=== PATIENT | female | born 1955 | race Caucasian/White ===

== ENCOUNTER → 2020-10-12 10:54 | Outpatient (CLI) | payer MEDICARE, SELFPAY ==
--- NOTE | ~2020-10-12 | MR_ITS ---
EXAMINATION: MR lumbar spine wo con EXAM DATE: 10/12/2020 11:33 INDICATION: Lumbar spondylosis. Low back pain. TECHNIQUE: Multi-sequential, multiplanar MR images of the lumbar spine were obtained without contrast . Sagittal T1, T2, T2 fat saturation images. Axial T2 weighted images. Comparison is made to prior examination from 12/20/2016. FINDINGS: There is moderate lumbar levoscoliosis. Severe disc disease L3-4 and L4-5 with about 5 mm r etrolisthesis at both of these levels. 3 mm retrolisthesis L1 on L2 and L2 on L3. Mild to moderate lo ss of the L3-L5 vertebral body heights without edema indicating that this height loss is chronic. Thi s is not significant change compared to prior study. The conus medullaris terminates at the L1/2 leve l and has normal signal intensity and morphology. Paraspinal soft tissue is unremarkable. Level by level evaluation: T12-L1: Disc does not extend beyond the endplate margin. Facet arthropathy: Mild. Neural foraminal stenosis: No stenosis. Central canal stenosis: No stenosis. L1-L2: There is a mild to moderate diffuse disc bulge. Facet arthropathy: Mild to moderate. Neural foraminal stenosis: Mild left. Central canal stenosis: Mild. L2-L3: There is a moderate diffuse disc bulge. Facet arthropathy: Moderate . Ligamentum flavum enlargement. Neural foraminal stenosis: Moderate right, mild to moderate left. Central canal stenosis: Moderate. L3-L4: There is a moderate diffuse disc bulge. Facet arthropathy: Moderate to severe. Neural foraminal stenosis: Moderate to severe right, mild left. Central canal stenosis: Mild to moderate. Lateral recess narrowing. L4-L5: There is a moderate diffuse disc bulge. Facet arthropathy: Moderate to severe. Neural foraminal stenosis: Severe left, moderate right. Central canal stenosis: Moderate to severe, particularly left lateral recess. L5-S1: There is a mild diffuse disc bulge. Facet arthropathy: Moderate. Neural foraminal stenosis: Moderate to severe left, moderate right. Central canal stenosis: Mild. Mild interval progression in spondylosis compared to 2017. IMPRESSION: 1. Moderate lumbar levoscoliosis. 2. Advanced lumbar spondylosis with severe narrowing of the L4-5 lateral recess and neural foramina. Reviewed, dictated and finalized at location A. D COUNTER ATTENDANT IMPRESSION: 1. Moderate lumbar levoscoliosis. 2. Advanced lumbar spondylosis with severe narrowing of the L4-5 lateral reces s and neural foramina.
== END ==
DX: M47.817 Spondylosis without myelopathy or radiculopathy, lumbosacral region (principal); M48.07 Spinal stenosis, lumbosacral region; M41.9 Scoliosis, unspecified
CPT/HCPCS: 72148

== ENCOUNTER → 2021-03-19 14:44 | Outpatient (CLI) | payer MEDICARE, SELFPAY ==
--- NOTE | ~2021-03-19 | MM_ITS ---
EXAMINATION: MM screening [facility] w micheal HISTORY: Screening mammogram TECHNIQUE: Craniocaudal and mediolateral oblique 3-D tomosynthesis images were obtained and synthetic 2-D images were generated. CAD analysis was submitted and interpreted. COMPARISON: 08/27/2019, 04/29/2015 bilateral digital screening mammogram examinations BREAST PARENCHYMAL COMPOSITION: There are scattered areas of fibroglandular density. FINDINGS: Stable focal asymmetry in the anterior upper inner right breast, stable since 04/29/2015. The re is no evidence of suspicious mass, calcification, or architectural distortion to suggest malignanc y in either breast. There has been no suspicious interval change. IMPRESSION: 1. No mammographic evidence of malignancy. 2. Recommend routine screening mammography in one year. BI-RADS Category 1: Negative Reviewed, dictated and finalized at location A.
== END ==
PROVIDERS: PCP Family Medicine; Visit Provider Family Medicine
DX: Z12.31 Encounter for screening mammogram for malignant neoplasm of breast (principal)
CPT/HCPCS: 77063; 77067

== ENCOUNTER 2022-02-03 15:05 | Outpatient (CLI) | payer MEDICARE, SELFPAY ==
--- NOTE | ~2022-02-03 | XR_ITS ---
XR ankle RT min 3V DATE: 02/03/2022 15:29 INDICATION: Right ankle effusion, arthritis TECHNIQUE: 4 views COMPARISON: 05/06/2015 right ankle 11/24/2016 right foot FINDINGS: Diffuse osteopenia. Accessory ossicle at the tip of the lateral malleolus (os subfibular artery). No fracture or dislocation of the ankle or disruption of the ankle mortise. Very prominent dorsal spurring and joint space narrowing at the talonavicular joint. Prominent os tibiale externum. There is mild osteoarthritis at the tarsometatarsal area. No significant fracture or dislocation, periosteal reaction or bone destruction is detected. There is old healed fracture deformity of the distal shaft of the fourth metatarsal bone. IMPRESSION: Osteopenia Prominent osteoarthritic change and spurring at the talonavicular joint; mild osteoarthritis at tarsa l metatarsal Prominent os tibiale externum Old healed fracture of distal fourth metatarsal shaft Reviewed, dictated and finalized at location B. IMPRESSION: Osteopenia Prominent osteoarthritic change and spurring at the talonavicular joint; mild o steoarthritis at tarsal metatarsal Prominent os tibiale externum Old healed fracture of distal fourth metatarsal shaft
== END 2022-02-03 15:06 | disposition home or self-care (01) ==
PROVIDERS: PCP Family Medicine; Visit Provider Family Medicine
DX: M25.571 Pain in right ankle and joints of right foot (principal); M25.471 Effusion, right ankle; M19.071 Primary osteoarthritis, right ankle and foot; Q66.81 Congenital vertical talus deformity, right foot; Z87.81 Personal history of (healed) traumatic fracture
CPT/HCPCS: 73610

== ENCOUNTER → 2022-11-28 10:18 | Outpatient (CLI) | payer MEDICARE, SELFPAY ==
--- NOTE | ~2022-11-28 | MM_ITS ---
EXAMINATION: MM screening [facility] [place] micheal HISTORY: Screening mammogram TECHNIQUE: Craniocaudal and mediolateral oblique 3-D tomosynthesis images were obtained and synthetic 2-D images were generated. CAD analysis was submitted and interpreted. COMPARISON: 03/19/2021, 08/27/2019, 04/29/2015 BREAST PARENCHYMAL COMPOSITION: There are scattered areas of fibroglandular density. FINDINGS: Again noted is stable focal asymmetry in the upper outer quadrant of the right breast. No s uspicious mass, calcification, or architectural distortion are identified in either breast to suggest malignancy. There has been no suspicious interval change. IMPRESSION: 1. No mammographic evidence of malignancy. 2. Recommend routine screening mammography in one year. BI-RADS Category 2: Benign finding(s). Reviewed, dictated and finalized at location A. RAM SERVICES PLANNER
--- NOTE | ~2022-11-28 | DEXA_ITS ---
Bone Density Report Name: BISMARK JOHN Age: 67 Sex: Female Ethnicity: White Date of : 1955 Indication: osteopenia; height loss; postmenopausal Referring Provider: KENDAL GAINES Study: Bone densitometry was performed. Exam Date: November 28, 2022 Accession number: [id number] Bone Density: Region BMD T-score Z-score Classification AP Spine (L1, L2) 0.840 -1.3 0.6 Osteopenia Femoral Neck (Left) 0.625 -2.0 -0.3 Osteopenia Total Hip (Left) 0.737 -1.7 -0.3 Osteopenia Femoral Neck (Right) 0.624 -2.0 -0.3 Osteopenia Total Hip (Right) 0.766 -1.4 0.0 Osteopenia Total Hip Mean 0.752 -1.6 -0.2 Osteopenia World Health Organization criteria for BMD impression classify patients as: Normal (T-score at or above -1.0), Osteopenia (T-score between -1.0 and -2.5), or Osteoporosis (T-score at or below -2.5). 10-year Fracture Risk(1): Major Osteoporotic Fracture 11% Hip Fracture 1.9% Reported Risk Factors: [place] (), Neck BMD=0.624, BMI=24.5 (1) FRAX(R) Version 3.08. Fracture probability calculated for an untreated patient. Fracture probability may be lower if the patient has received treatment. Previous Exams: Region Exam Age BMD T-score BMD Change BMD Change Date g/cm2 vs Baseline vs Previous AP Spine(L1, L2) 11/28/2022 67 0.840 -1.3 0.027* 0.033* 08/27/2019 64 0.807 -1.6 -0.006 -0.035* 03/21/2013 57 0.842 -1.2 0.029* 0.004 01/24/2011 55 0.838 -1.3 0.025* 0.025* 01/16/2009 53 0.814 -1.5 Total Hip(Left) 11/28/2022 67 0.737 -1.7 -0.032* -0.021 08/27/2019 64 0.758 -1.5 -0.012 -0.015 03/21/2013 57 0.772 -1.4 0.003 0.006 01/24/2011 55 0.766 -1.4 -0.003 -0.003 01/16/2009 53 0.769 -1.4 Total Hip(Right) 11/28/2022 67 0.766 -1.4 -0.018 0.008 08/27/2019 64 0.758 -1.5 -0.026 -0.045* 03/21/2013 57 0.802 -1.1 0.018 0.005 01/24/2011 55 0.797 -1.2 0.013 0.013 01/16/2009 53 0.784 -1.3 *Denotes significance at 95% confidence level, LSC for AP Spine = 0.022 g/cm2, LSC for Total Hip = 0.027 g/cm2 Clinical Information Provided by Patient: Has used the following medications: Vitamin D, Calcium Patient maximum height was 65 Menopause Age: 56 No regular weight bearing exercise Drinks caffeinated beverages Onset of menses a
== END ==
PROVIDERS: PCP Family Medicine; Visit Provider Family Medicine
DX: Z12.31 Encounter for screening mammogram for malignant neoplasm of breast (principal); Z78.0 Asymptomatic menopausal state; M85.89 Other specified disorders of bone density and structure, multiple sites
CPT/HCPCS: 77063; 77067; 77080

== ENCOUNTER 2023-02-22 08:45 | Outpatient (RCR) | payer MEDICARE, SELFPAY ==
--- NOTE | 2023-01-31 11:47 | PTOPEVAL1 ---
Assessment and note entered by Jose Calvillo, PT Evaluation Information Assessment Status Evaluation Diagnosis Spinal stenosis, lumbar region Onset 6-8 weeks ago. Subjective Information Patient reports she has had a bad back for awhile, but that she did core strengthening over 2 years ago and that has helped. In the last 6-8 weeks she started feeling impaired sensation in her R thigh, no pain or weakness reported. Patient reports worst pain in back is after carrying her groceries up her stairs. Patient states she has scoliosis and recently had an orthotic insert put in her R shoe for R ankle pain. Originally said the insert was 8 weeks old and now states it was closer to 6 months ago. Reported Pain Level Pain Score 6: Self Report Assessment PT Clinical Summary Deisy is a 67 year old female coming into the clinic with a diagnosis of spinal stenosis of the lumbar region. She has weakness in her hips and S /S of sciatica on the RLE. Recommend hip strengthening along with stretching of the low back, piriformis, and calf. Patient had an MRI 2 years ago, may not be a bad idea to get another one. Plan of Care Interventions Electrical Stimulation,Gait Training,Hot Pack/Cold Pack,Manual Therapy,Mechanical Traction,Neuro Re- education,Patient/Caregiver Education,Therapeutic Activities,Therapeutic Exercise,Ultrasound Other Interventions taping, cupping, IASTM PT Services Indicated Yes Treatment Frequency and 1-2x/wk for 4 weeks Duration These treatments will address the objective and functional deficits as defined above. The patient will be advanced safely and appropriately in order for the patient to progress towards his/her prior level of function. Additional exercises will be introduced and as well as a comprehensive home exercise program upon discharge, if needed, ?to ensure carryover of functional gains achieved in the clinic. This treatment plan has been reviewed and agreement upon by the patient.
--- NOTE | 2023-04-11 11:40 | PTOPDC ---
Assessment and note entered by Jose Calvillo, PT Evaluation Information Assessment Status Discharge - Pt Not Present Diagnosis spinal stenosis, lumbar region Onset 6-8 weeks ago. 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 Patient knows she can get a new referral later if needed. Assessment PT Clinical Summary Deisy is a 67 year old female coming into the clinic with a diagnosis of spinal stenosis of the lumbar region. She has weakness in her hips and S /S of sciatica on the RLE. Recommend hip strengthening along with stretching of the low back, piriformis, and calf. Patient had an MRI 2 years ago, may not be a bad idea to get another one. Plan of Care PT Services Indicated Yes
== END 2023-04-11 15:12 | disposition home or self-care (01) ==
LOC: ANHPT 08:45
PROVIDERS: PCP Family Medicine; Visit Provider Family Medicine
DX: M48.061 Spinal stenosis, lumbar region without neurogenic claudication (principal)
CPT/HCPCS: 97110; 97161

== ENCOUNTER → 2023-03-20 09:46 | Outpatient (CLI) | payer MEDICARE, SELFPAY ==
--- NOTE | ~2023-03-20 | MR_ITS ---
MRI of the lumbar spine Clinical History: Back pain, paresthesias Technique: Axial T2-weighted and T1-weighted images, and sagittal T1-weighted, T2-weighted, and T2 fa t-sat images were acquired. Following intravenous administration of 15 cc MultiHance gadolinium, T1-w eighted fat-sat imaging was performed in the axial and sagittal planes. Findings: No acute fracture identified. 5 mm retrolisthesis of L2 over L3 present. 5 mm retrolisthesi s of L3 over L4 present. 6 mm retrolisthesis of L4 over L5 present. There is extensive reactive marro w signal in the L2, L3, L4 vertebral bodies related to degenerative disc disease. At L1-L2, there is disc bulge, most prominent left foraminal region, with mild to moderate facet arth ropathy. No central canal stenosis. There is preservation of the neural foramina. At L2-L3, there is severe degenerative disc narrowing. Disc bulge and severe facet arthropathy result in moderate to severe thecal sac compression/spinal canal stenosis. There is severe right neural for aminal narrowing. There is minimal left neural foraminal narrowing. L3-L4, there is severe degenerative disc narrowing. There is mild disc osteophyte complex and severe facet arthropathy. There is right lateral recess stenosis. There is severe right neural foraminal chase rowing and moderate left neural foraminal narrowing. At L4-L5, there is severe degenerative disc narrowing. There is severe facet arthropathy, left worse than right. There is severe left neural foraminal narrowing and moderate to severe right neural jourdan inal narrowing. At L5-S1, there is minimal disc bulge, with severe facet arthropathy. No central canal stenosis. Ther e is mild left neural foraminal narrowing. Paravertebral soft tissues are unremarkable. No suspicious postcontrast enhancement identified. Impression: Severe degenerative spondylosis of the lumbar spine, as detailed above. 5 mm retrolisthesis of L2 over L3. 5 mm retrolisthesis of L3 over L4. 6 mm retrolisthesis of L4 over L5. Reviewed, dictated and finalized at [facility]. Impression: Severe degenerative spondylosis of the lumbar spine, as detailed above. 5 mm retrolisthesis of L2 over L3. 5 mm retrolisthesis of L3 over L4. 6 mm retrolisthesis of L4 over L5.
== END ==
PROVIDERS: PCP Family Medicine; Visit Provider Family Medicine
DX: M48.061 Spinal stenosis, lumbar region without neurogenic claudication (principal); M47.816 Spondylosis without myelopathy or radiculopathy, lumbar region
CPT/HCPCS: 72158; A9577

== ENCOUNTER → 2023-05-30 11:02 | Outpatient (CLI) | payer MEDICARE, SELFPAY ==
--- NOTE | ~2023-05-30 | XR_ITS ---
EXAM: XR lumbar spine min 4V DATE: 05/30/2023 11:49 HISTORY: M47.16 - Other spondylosis with myelopathy, lumbar region . COMPARISON: MR L-spine 03/20/2023. FINDINGS: 5 nonrib-bearing lumbar-type vertebral bodies. Lumbar scoliosis. Exaggerated lumbar lordos is. Multilevel severe degenerative disc disease. Stable multilevel mild vertebral body height loss. S table multilevel grade 1 retrolistheses. Very limited range of motion in flexion. Essentially no posi tion change in extension. Severe mid and lower lumbar facet sclerosis. Atherosclerotic aortic calcifi cations without evident aneurysm IMPRESSION: Grossly stable multilevel mild vertebral body compression fractures, listheses, and severe lumbar deg enerative disc disease. Very limited range of motion in flexion and extension which limits evaluation for dynamic listheses. Reviewed, dictated and finalized at location K. IMPRESSION: Grossly stable multilevel mild vertebral body compression fractures, listheses, and severe lumbar degenerative disc disease. Very limited range of motion in flexion and extension which limits evaluation f or dynamic listheses.
== END ==
PROVIDERS: PCP Neurological Surgery; Visit Provider Neurological Surgery
DX: M48.061 Spinal stenosis, lumbar region without neurogenic claudication (principal); M47.16 Other spondylosis with myelopathy, lumbar region; M51.36 Other intervertebral disc degeneration, lumbar region
CPT/HCPCS: 72110

== ENCOUNTER → 2023-07-11 09:16 | Outpatient (CLI) | payer MEDICARE, SELFPAY ==
--- NOTE | ~2023-07-11 | XR_ITS ---
AP view of the pelvis and AP and lateral views of the bilateral hips Clinical history: Pain Findings: No acute fracture or dislocation is seen. Osseous alignment is anatomic. Bilateral hip and SI joint spaces are preserved. Soft tissues are unremarkable. Impression: No significant abnormality is seen. Reviewed, dictated and finalized at location . Impression: No significant abnormality is seen.
--- NOTE | ~2023-07-11 | XR_ITS ---
Left Knee Technique: AP, lateral, and sunrise views were obtained. Clinical History: Ankylosing spondylitis Findings: No fracture or dislocation is seen. Osseous alignment is anatomic. Joint spaces are preserv ed without degenerative or erosive change. Soft tissues are unremarkable. No joint effusion is seen. Impression: Unremarkable left knee radiographs. Reviewed, dictated and finalized at location . Impression: Unremarkable left knee radiographs.
--- NOTE | ~2023-07-11 | XR_ITS ---
Right Knee Technique: AP, lateral, and sunrise views were obtained. Clinical History: Ankylosing spondylitis Findings: No fracture or dislocation is seen. Osseous alignment is anatomic. Joint spaces are preserv ed without degenerative or erosive change. Soft tissues are unremarkable. No joint effusion is seen. Impression: Unremarkable right knee radiographs. Reviewed, dictated and finalized at location . Impression: Unremarkable right knee radiographs.
== END ==
PROVIDERS: PCP Internal Medicine; Visit Provider Internal Medicine
DX: M45.0 Ankylosing spondylitis of multiple sites in spine (principal); M80.00XD Age-related osteoporosis with current pathological fracture, unspecified site, subsequent encounter for fracture with routine healing
CPT/HCPCS: 73521; 73562

== ENCOUNTER 2023-09-27 09:15 | Outpatient (RCR) | payer MEDICARE, SELFPAY ==
--- NOTE | 2023-08-24 10:52 | PTOPEVAL1 ---
Assessment and note entered by Balta Farmer Evaluation Information Assessment Status Evaluation Diagnosis scoliosis, lumbar stenosis, low back pain Subjective Information Pt. reports she has had years of low back pain. She reports that recent films indicated that she has developed a scoliosis. She reports that pain is located across the low back and pain radiates into the left thigh and down to the knee. She gets occasional numbness described in the left arellano. She reports that she has been to therapy in the past, but was unable to complete due to lack of staffing at the facility she attended. She reports that she is concerned regarding some weakness in the left leg. She states that she has fallen due to the left leg giving out and she is currently using a cane. She states that her scoliosis concerns her and would like to address her scoliosis. Reported Pain Level Pain Score 4: Self Report Assessment PT Clinical Summary Pt. is a 68 year old female who enters the clinic with low back pain and left l.e. radiculopathy. She presents with structural scoliosis of the thoracolumbar region resulting in muscular imbalance. She currently presents with impaired postural awareness, impaired right l.e. flexibility, impaired proximal left l.e. strength, impaired gait, pain and functional decline. Continued skilled PT is indicated in order to improve these areas to allow for improved comfort and safety with IADLs. Plan of Care Interventions Electrical Stimulation,Gait Training,Hot Pack/Cold Pack,Manual Therapy,Neuro Re-education,Patient/ Caregiver Educati,Therapeutic Activities, Therapeutic Exercise PT Services Indicated Yes Treatment Frequency and 2x/week x 10 visits Duration These treatments will address the objective and functional deficits as defined above. The patient will be advanced safely and appropriately in order for the patient to progress towards his/her prior level of function. Additional exercises will be introduced and as well as a comprehensive home exercise program upon discharge, if needed, ?to ensure carryover of functional gains achieved in the clinic. This treatment plan has been reviewed and agreement upon by the patient.
--- NOTE | 2023-08-24 10:54 | OPREHPOC ---
Outpatient Therapy Plan of Care This is a Multidisciplinary Plan of Care that may contain components documented by all disciplines (PT, OT, and ST.) PT Problem 1 PT Problem #1 Knowledge Deficit PT Goal 1 Goal Pt. will be independent with a HEP addressing postural awareness and strength Target Visit 2 PT Problem 2 PT Problem #2 Impaired Flexibility PT Goal 1 Goal Pt. will present at 15 degrees from full knee extension on the right with the 90/90 test Target Visit 5 PT Problem 3 PT Problem #3 Impaired Strength PT Goal 1 Goal Pt. will present with 4+/5 left hip abduction and extension strength to improve stability during left stance phase of gait. Target Visit 10 PT Problem 4 PT Problem #4 Impaired Gait PT Goal 1 Goal Pt. will present with no degree of trendelenburg during left stance phase of gait. Target Visit 10
--- NOTE | 2023-09-04 08:09 | PCPTNOTE ---
pt canceled today appt due to illness.
--- NOTE | 2023-09-27 10:26 | PTOPDC ---
Assessment and note entered by Balta Farmer Discharge Information Assessment Status Discharge Diagnosis scoliosis, lumbar stenosis, low back pain Subjective Information Pt. reports that therapy has helped. She states that her pain is still presents, but less intense. She reports that she is doing exercise at home without complication. She reports that she still notes weakness in the left leg, but is aware that her back is very arthritic. She reports that she is more concisous of her body mechanics and with lifting attempts to bend more from the knees and hips. She reports that she would like to continue with exercise on her own at this time. Reported Pain Level Pain Score 3: Self Report Assessment PT Clinical Summary Mrs. Aldridge has attended a total of 8 treatment sessions. Treatment has focused on core stability , flexibility, postural awareness, and pain reduction. She demonstrates improvement in regards to pain reports and has developed a comprehensive HEP. Some left l.e. weakness remains, however pt. can address remaining deficits through regular exercise. She will be discharged from our care at this time. Plan of Care PT Services Indicated D/C from PT to an independent HEP.
== END 2023-09-27 12:35 | disposition home or self-care (01) ==
LOC: ANHPT 09:15
PROVIDERS: PCP Internal Medicine; Visit Provider Neurological Surgery
DX: M41.86 Other forms of scoliosis, lumbar region (principal)
CPT/HCPCS: 97110; 97112; 97140; 97161; 97530

== ENCOUNTER 2024-02-08 10:00 | Outpatient (RCR) | payer MEDICARE, SELFPAY ==
--- NOTE | 2024-01-09 11:59 | OPREHPOC ---
Outpatient Therapy Plan of Care This is a Multidisciplinary Plan of Care that may contain components documented by all disciplines (PT, OT, and ST.) PT Problem 1 PT Problem #1 Knowledge Deficit PT Goal 1 Goal *indep with HEP PT Problem 2 PT Problem #2 Pain PT Goal 1 Goal 1* pt report pain rating at worst of 3/10 2* self assessment LE functional scale of 32% limitation PT Problem 3 PT Problem #3 Impaired Strength PT Goal 1 Goal increase strength of L hip and knee, to improve stability to knee for improved mobility skills 1* single leg standing x 10 seconds with good stability 2* 2 minute walking test distance of 375' 3* pt perform 20 reps of mat strengthening exercises with good stability
--- NOTE | 2024-01-09 11:59 | PTOPEVAL1 ---
Assessment and note entered by Jeanette Hernandez, PT Evaluation Information Assessment Status Evaluation Diagnosis L knee pain, Patella femoral pain syndrome Onset February 2023 Subjective Information increase pain in knee after fall, went to ortho for consult; x ray report states mild-moderate medial joint narrowing, mild PF DJD Reported Pain Level Pain Score Self Report Additional Pain Score Comments pain range in past few days 0-5/10; hurts inside knee; varies during day increase pain: walking/activity 45 minutes; decrease pain: sit,rest, tramadol for back pain; heat, ice no swelling in knee; sleeping is OK- use pillow between knees; also has LBP Assessment PT Clinical Summary Deisy has the diagnosis of L knee pain, chondromalacia patella, onset after a fall in February . 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 Self assessment LE functional rating of 48% limitation in activity. She has a fitness membership and does water exercises for fitness. With the evaluation: L hip and knee ROM is WNL; pain increase at end range of flexion and crepitus of knee; 2 minute walking test distance of 320' with reports of LBP and L leg weak; weakness of trunk and L LE. Skilled PT services are indicated for modalities to decrease pain, therapeutic exercises to increase strength and education for home exercises and self care. Plan of Care Interventions Electrical Stimulation,Hot Pack/Cold Pack,Manual Therapy,Neuro Re-education,Patient Education,Therapeutic Activities,Therapeutic Exercise,Ultrasound,Other Other Interventions taping PT Services Indicated Yes Treatment Frequency and 2x/wk for 8 visit total Duration These treatments will address the objective and functional deficits as defined above. The patient will be advanced safely and appropriately in order for the patient to progress towards his/her prior level of function. Additional exercises will be introduced and as well as a comprehensive home exercise program upon discharge, if needed, ?to ensure carryover of functional gains achieved in the clinic. This treatment
--- NOTE | 2024-01-24 14:34 | PCPTNOTE ---
Pt canceled due to dizziness today.
--- NOTE | 2024-04-18 15:55 | PTOPDC ---
Assessment and note entered by Balta Farmer Evaluation Information Assessment Status Discharge Diagnosis L knee pain, patella femoral pain syndrome Onset February 2023 Subjective Information Pt. reports that she has learned a lot of good exercise and pain management techniques from therapy. She states that pain levels of the left knee continue to vary based upon her activity. She notices pain more so with squatting and stair activities. She states that she is beginning an aquatic exercise program at the local [facility]. She states that she is ready for discharge. Assessment PT Clinical Summary Pt. demonstrates significant progress toward the majority of goals established at the initial evaluation. She is independent with her current HEP. At this time pt. will be discharged from our care. Plan of Care PT Services Indicated No
== END 2024-03-25 07:19 | disposition home or self-care (01) ==
LOC: ANHPT 10:00
PROVIDERS: PCP Family Medicine; Visit Provider Nurse Practitioner Family
DX: M22.42 Chondromalacia patellae, left knee (principal); M22.2X9 Patellofemoral disorders, unspecified knee
CPT/HCPCS: 97110; 97116; 97161; 97530

== ENCOUNTER 2024-12-02 11:48 | Outpatient (CLI) | payer MEDICARE, SELFPAY ==
--- NOTE | ~2024-12-02 | DEXA_ITS ---
Bone Density Report Name: BISMARK JOHN Age: 69 Sex: Female Ethnicity: White Date of : 1955 Indication: postmenopausal; screening for osteoporosis; secondary osteoporosis; Referring Provider: UNKNOWN, UNKNOWN Study: Bone densitometry was performed. Exam Date: December 02, 2024 Accession number: [id number] Bone Density: Region BMD T-score Z-score Classification AP Spine(L1-L4) 1.034 -0.1 2.0 Normal Femoral Neck (Left) 0.663 -1.7 0.1 Osteopenia Total Hip (Left) 0.776 -1.4 0.2 Osteopenia Femoral Neck (Right) 0.683 -1.5 0.3 Osteopenia Total Hip (Right) 0.795 -1.2 0.3 Osteopenia Femoral Neck Mean 0.673 -1.6 0.2 Osteopenia Total Hip Mean 0.786 -1.3 0.2 Osteopenia World Health Organization criteria for BMD impression classify patients as: Normal (T-score at or above -1.0), Osteopenia (T-score between -1.0 and -2.5), or Osteoporosis (T-score at or below -2.5). 10-year Fracture Risk: FRAX not reported because: Treated for osteoporosis Clinical Information Provided by Patient: Has secondary osteoporosis Is being treated for osteoporosis Has used the following medications: Fosamax (i.e. alendronate), Reclast (i.e. zoledronate) Patient maximum height was 65 Menopause Age: 49 No regular weight bearing exercise Drinks caffeinated beverages Onset of menses at age 11 Number of children 3 Impression: The patient has low bone mass, based on the Left Femoral Neck T-score. Discussion: It is important to ask patients whether they are taking their medications and to encourage continued and appropriate compliance with their osteoporosis therapies to reduce fracture risk. It is also important to review their risk factors and encourage appropriate calcium and vitamin D intakes, exercise, fall prevention and other lifestyle measures. Follow-Up: Consider a repeat BMD and Vertebral Fracture Assessment (VFA) exam in 2 years or sooner if medically necessary, to reassess this patient's status. Reported by: DORA on 12/02/2024 12:17:00 PM. Reviewed, dictated and finalized at location A.
--- OUTSIDE RECORDS SUMMARY | 2024-12-02 13:54 | XMS_ITS | Clinical Summary ---
Author Organization [facility] Address [address] [place] [address] Care Team Providers Care Luster Applicator Name Role Phone Unavailable Primary Care Provider Unavailabl e Source Comments [facility],non-owned Affiliates and Associated Physician Practices is amultiple site organization consisting of ambulatory clinics and hospital sitesin [place], [place], [place] and [place]. This disclosure is being madepursuant to the Care Everywhere program and may not contain all information available regarding this patient. Last updated 18.[facility] Immunizations Name Administration Dates Next Due INFLUENZA VACCINE, QUADR. (F LUZONE; FLULAVAL; FLUARIX; AFLURIA QUADRIVALENT; 6MO+), 0.5 ML (IIV4) 07/19/2019 Social History Tobacco Use Types Packs/Day Years Used Date Smoking Tobacco: Never Assessed Sex and Gender Information Value Date Recorded Sex Assigned at Not on file Gender Identity Not on file Sexual Orientation Not on file Plan of Treatment Health Maintenance Due Date Last Done Comments BONE DENSITY TESTING 1955 COLOGUARD (AGES 45-75) - COL ON CA SCREENING 1955 COLON MONITORING 1955 COLONOSCOPY - COLON CA SCREENING 1954 CT COLONOGRAPHY - COLON CA SCREENING 1955 Colorectal Cancer Screening 1955 FIT - COLON CA SCREENING 1955 FLEX SIG - COLON CA SCREENING 1955 LIPID TESTING 1955 MAMMOGRAM 1955 MEDICARE AWV 12 MONTHS 1955 HEPATITIS C SCREENING 05/18/1972 DTAP/TDAP/TD VACCINES (1 - Tdap) 1973 PNEUMOCOCCAL VACCINE 50+ (1 of 1 - PCV) 2004 ZOSTER VACCINE (1 of 2) 2004 COVID-19 VACCINE (1 - 2023-2 5 season) 2024 INFLUENZA VACCINE (#1) 2024 07/19/2019 DEPRESSION SCREENING 09/25/2024 Respiratory Syncytial Virus (RSV) Vaccine Pt: or over 60 yrs (1 - 1-dose 75+ series) 2029 HEPATITIS B VACCINE Aged Out No longe r eligible based on patient's age to complete this topic HIB VACCINE Aged Out No longer eligi ble based on patient's age to complete this topic HPV VACCINE Aged Out No longer eligi ble based on patient's age to complete this topic MENINGOCOCCAL (Group B) VACCINE Aged Out No longer eligible based on patient's age to complete this topic MENINGOCOCCAL VACCINE Aged Out No joe endy eligible based on patient's age to complete this topic
--- OUTSIDE RECORDS SUMMARY | 2024-12-02 13:55 | XMS_ITS | Patient Health Summary ---
Author Organization [facility] Address [address] [place] [address] Care Team Providers Care Occupational Safety And Health Manager Name Role Phone Unavailable Primary Care Provider Unavailabl e Note from [facility],non-owned Affiliates and Associated Physician Practices is amultiple site organization consisting of ambulatory clinics and hospital sitesin [place], [place], [place] and [place]. This disclosure is being madepursuant to the Care Everywhere program and may not contain all information available regarding this patient. Last updated 18.[facility] Immunizations * INFLUENZA VACCINE, QUADR. (FLUZONE; FLULAVAL; FLUARIX; AFLURIA QUADRIVALENT; 6MO+), 0.5 ML (IIV4)(Given 07/19/2019) Social History Tobacco Use Types Packs/Day Years Used Date Smoking Tobacco: Never Assessed Sex and Gender Information Value Date Recorded Sex Assigned at Not on file Gender Identity Not on file Sexual Orientation Not on file
--- OUTSIDE RECORDS SUMMARY | 2024-12-02 13:55 | XMS_ITS | Referral Summary ---
Author Organization [facility] Address [address] [place] [address] Care Team Providers Care Computer Forensics Examiner Name Role Phone Unavailable Primary Care Provider Unavailabl e Source Comments [facility],non-owned Affiliates and Associated Physician Practices is amultiple site organization consisting of ambulatory clinics and hospital sitesin [place], [place], [place] and [place]. This disclosure is being madepursuant to the Care Everywhere program and may not contain all information available regarding this patient. Last updated 18.[facility] Immunizations Name Administration Dates Next Due INFLUENZA VACCINE, QUADR. (F LUZONE; FLULAVAL; FLUARIX; AFLURIA QUADRIVALENT; 6MO+), 0.5 ML (IIV4) 07/19/2019 Social History Tobacco Use Types Packs/Day Years Used Date Smoking Tobacco: Never Assessed Sex and Gender Information Value Date Recorded Sex Assigned at Not on file Gender Identity Not on file Sexual Orientation Not on file Plan of Treatment Not on file
--- OUTSIDE RECORDS SUMMARY | 2024-12-02 13:55 | XMS_ITS | Continuity of Care Document ---
Author Organization [facility] Address [address] [place] [address] Phone Care Team Providers Care Cash Application Clerk Name Role Phone Bobby Crespo MD Unavailable Unavailable Advance Directives Directive Yes / No Effective Date File Name No Information Encounters Encounter Description Practice Location Reason(s) For Visit Diagnoses Date Provider Providers Copied on Encounter [address], [place], [place], [id number] , tel: [phone] [facility] Sprain of foot, unspecified site 2 Zak Rosales. [address] [place] [address] [place] [address], [id number]. [phone] Referring Provider: Bobby Coffey, [address] [place] [address] [place] [address], [address] . tel:[phone] [facility] [address], [place], [place], [address] , tel: [phone] [facility] Routine general medical examination at a health care facilityUnspecifi ed hearing lossPain in joint, ankle and footRoutine general medical examination at a health care facility 2 Zak Rosales. [address] [place] [address] [place] [address], [id number]. tel:[phone] Referring Provider: Bobby Coffey, [address] [place] [address] [address] [place] [address], [address] . tel:[phone] [facility], [address], [place], [place], [address] , [place] tel: [phone] [facility] URIN TRACT INFECTION NOS 1 David Rai. [address] [facility] [address], [place], [place], [address]. tel:[phone] [facility], [address], [place], [place], [address] , [place] tel: [phone] [facility] EDEMAPAIN IN LIMB 0 Zak Rosales. [address] [facility], [facility] [address], [place], [place], [address]. tel:[phone] [facility], [address], [place], [place], [address] , [place] tel: [phone] [facility] MALAISE AND FATIGUE NEC 0 Luis Chambers. [address] [facility] [address], [place], [place], [address], [place]. tel: [phone] [facility], [address], [place], [place], [address] , [place] tel: [phone] [facility] ROUTINE MEDICAL EXAM 0 Zak Rosales. [address] [facility], [facility] [address], [place], [place], [address]. tel:[phone] [facility], [address], [place], [place], [address] , [place] tel: [phone] [facility] ACUTE PHARYNGITIS 2200 9 Conversion Doctor. [address] [facility], [place], [address], [place]. [employer], [address], [place], [place], [address] , [place] tel: [phone] [facility] SCREEN-DIABETES MELLITUSESOPHAGEA L REFLUXSCREEN LIPOID DISORDERS 8-200 8 Zak Rosales. [address] [facility], [facility] [address], [place], [place], [address]. tel:[phone] [facility], [address], [place], [place], [address] , [place] tel: [phone] [facility] JOINT PAIN-FOREARM Nov-3 0-200 6 Zak Rosales. [address] [facility], [facility] [address], [place], [place], [address]. tel: [phone] [facility], [address], [place], [place], [address] , [place] tel: [phone] [facility] ACUTE URI NOS Aug-2 2-200 5 Conversion Doctor. [address] [place] [address], [place], [address], [place]. [facility], [address], [place], [place], [address] , [place] tel: [phone] [facility] VACCINATION FOR TD-DT Nov-2 2-200 5 Zak Rosales. [address] [facility], [facility] [address], [place], [place], [address]. tel: [phone] [facility], [address], [place], [place], [address] , [place] tel: [phone] [facility] LUMBAGO Navarro-0 4-200 4 Zak Rosales. [facility] [facility], [facility] [address], [place], [place], [address]. tel:[phone] [facility], [address], [place], [place], [address] , [place] tel: [phone] [facility] BACKACHE NOS January-2 4-200 4 Zak Rosales. [facility] [facility], [facility] [address], [place], [place], [address]. tel:[phone] [facility], [address], [place], [place], [address] , [place] tel: [phone] [facility] SCIATICA Feb-0 9-200 4 Zak Rosales. [address] [place] [address], [facility] [address], [place], [place], [address]. tel:[phone] [facility], [address], [place], [place], [address] , [place] tel: [phone] Smith GENERAL OSTEOARTHROSISOTH R MIGRNE WO NTRC MGRN 3200 2 Luis Chambers. [address] [facility] [address], [place], [place], [address], [place]. tel:[phone] [facility], [address], [place], [place], [address] , [place] tel: [phone] Luis RHINITIS DUE TO POLLEN 200 0 Luis Chambers. [address] [facility] [address], [place], [place], [address], [place]. tel:[phone] Family History Family Member Type Diagnosis Age At Onset No Information Payers Payer name Insurance type Covered republican ID Mell young(s) CAMILA [id number] Social History Type Description Quantity Date Captured Comments Alcohol Use Details Unknown Caffeine Use Details Unknown Tobacco Use Status No Information Smoking Status Never smoker Sex Female Vital Signs Date / Time: Height Weight BMI Pulse Rate Blood Pressure Temperature Respiratory Rate Body Surface Area Head Circumference Head Circ. Percentile Wt./Leroy. Percentile BMI percentile Pulse Ox Inhaled Ox 2:33 PM 65.00 in 146.00 lbs 24.2 9 kg/m eter (2) 72 /min 132/82 mm[Hg] 99.00 F 12 /min Chief Complaint And Reason For Visit No Information Reason For Referral Reason For Referral No Information History Of Present Illness Encounter Date Complaint History Of Prese nt Illness No Information Functional Status Date Functional Assessmen t No Information Instructions Date Instruction Additional Infor mation No Information Assessments Type Assessment Date No Information Patient Care Teams Name Effective Dates (start - stop) Status Members No Information
== END 2024-12-02 11:49 | disposition home or self-care (01) ==
LOC: CHSIMG 11:55
PROVIDERS: PCP Family Medicine
DX: Z78.0 Asymptomatic menopausal state (principal); M85.89 Other specified disorders of bone density and structure, multiple sites
CPT/HCPCS: 77080

== ENCOUNTER 2025-01-09 14:46 | Outpatient (CLI) | payer MEDICARE, SELFPAY ==
--- NOTE | ~2025-01-09 | US_ITS ---
Pelvic ultrasound. Clinical History: Ovarian cyst Technique: Realtime transabdominal and transvaginal scanning of the pelvis was performed. Color flow Doppler and Doppler spectral analysis were performed. Findings: The uterus is anteverted. The endometrial stripe has a thickness of 4 mm. No focal mass is identified. Noted ovary visualized. No adnexal mass seen. There is no evidence of free fluid in the cul de sac. Impression: Neither ovary seen. No adnexal mass seen. Reviewed, dictated and finalized at location M. Impression: Neither ovary seen. No adnexal mass seen.
== END 2025-01-09 14:47 | disposition home or self-care (01) ==
LOC: MICIMG 14:48
PROVIDERS: PCP Family Medicine; Visit Provider Physician Assistant
DX: R14.0 Abdominal distension (gaseous) (principal); R10.31 Right lower quadrant pain
CPT/HCPCS: 76856

== ENCOUNTER 2025-05-06 09:41 | Emergency (ER) | payer MEDICARE, SELFPAY ==
[2025-05-06 09:54] VITALS: BP 133/76; PULSE 92; RESP 16; TEMP 36.7; O2SAT 92
--- NOTE | 2025-05-06 10:21 | ED.GENADULT ---
HPI - General Adult General Chief complaint: Skin/Abscess/Foreign Body Stated complaint: rash Source: patient Mode of arrival: ambulatory Limitations: no limitations History of Present Illness HPI narrative: Pt presents for evaluation of skin lesions. She states last week Monday, she was working in her garage. She had generalized body aches and a fever. On Monday she developed some erythematous lesions to the left side of her face, along the mandible. Two days ago she developed a few to her left thumb. She states both areas are pruritic. No new lotions, soaps, detergents, or topical products. She tried applying some hydrocortisone cream which provided some improvement in her symptoms. She has had shingles twice in the past. She had mild symptoms during both episodes, which responded favorably to antiviral therapy. Related Data Home Medications ?Medication ?Instructions ?Recorded ?Confirmed ?Last Taken ?Type cholecalciferol (vitamin D3) 125 125 mcg PO DAILY 01/12/24 03/26/25 Unknown History mcg (5,000 unit) capsule omeprazole 40 mg capsule,delayed 40 mg PO DAILY 01/12/24 03/26/25 Unknown History release Allergies Allergy/AdvReac Type Severity Reaction Status Date / Time mold Allergy Mild sneezing Verified 05/06/25 09:43 No Known Drug Allergies Allergy Mild unknown Verified 05/06/25 09:43 Review of Systems Review of Systems: CONSTITUTIONAL: Denies fever, chills, or sweats. EYES: Denies visual changes, redness, or discharge. ENT: Denies rhinorrhea, congestion, sore throat, or otalgia. CARDIOVASCULAR: Denies chest pain, palpitations, or edema. RESPIRATORY: Denies cough or dyspnea. GASTROINTESTINAL: Denies abdominal pain, nausea, vomiting, or diarrhea. GENITOURINARY: Denies dysuria or hematuria. SKIN: Reports pruritic erythematous rash to left side of the face and left thumb MUSCULOSKELETAL: Denies back pain, joint pain, or myalgia. NEUROLOGIC: Denies headache, numbness, dizziness, or weakness. PSYCHIATRIC: Denies anxiety or depression. 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 Venous insufficiency of both lower extremities Spondylosis of lumbar spine Sensorineural hearing loss (SNHL) of both ears Gastroenteritis Bilateral headaches Arthritis Allergic sinusitis Chronic insomnia Arthropathy Heberden's nodes Bilateral tinnitus Sensorineural hearing loss Elevated BP without diagnosis of hypertension Hypothyroidism (acquired) Surgical History Surgical History No pertinent past surgical history Family History Family History Mother Hypertension Family history of cardiovascular disease Family history of arthritis Family history of congestive heart failure, Onset Age: 93 Father Hypertension Family history of cardiovascular disease Family history of congestive heart failure, Onset Age: 78 Other Depression Family history of heart disease in male family member before age 55 Family history of mental disorder HLD (hyperlipidemia) Heart disease Social History Social History Social History: Smoking status: Never smoker Second hand tobacco smoke exposure: No Alcohol intake: never Substance use: never Substance use type: does not use Do You Feel Safe in your Home?: Yes Lack of Transportation: No Lack of Food: Never True Current Housing: I Have Housing Concerned About Future Housing: No Difficulty Paying Gas/Electric Bills: No Difficulty Paying for Meds: No Currently Unemployed: No Education: Associate Degree Difficulty w/ Childcare or Family Care: No Living arrangements: alone Occupation/Education: retired Gender identity (if verbalized by the patient): Female Sexual Orientation (if Verbalized by the Patient): Straight or Heterosexual Agree to blood products: Yes Exam Narrative: GENERAL: Well-appearing, well-nourished, and in no acute distress. HEAD: Normocephalic, atraumatic. EYES: PERRLA and EOMI. ENT: Nares clear, no rhinorrhea or epistaxis. Mucous membranes moist. Oropharynx without tonsillar hypertrophy exudate or other lesions. Bilateral TMs pearly phan nonbulging NECK: Supple. No adenopathy or masses. No carotid bruits or JVD CHEST: Clear to auscultation. No respiratory distress. No wheezes rales or rhonchi HEART: Regular rate and rhythm. No murmur heard. Normal peripheral pulses. ABDOMEN: Soft, nontender, nondistended, normal active bowel sounds. EXTREMITIES: Normal range of motion. No edema. SKIN: there cluster of erythematous vesicles the left side of the face adjacent to the chin with a few erythematous vesicles noted to the left thumb NEURO: No focal deficits. Alert and oriented x3. PSYCH: Normal mood and affect. Course Course Emergency Course: this is a 69-year-old female who presented for evaluation of a pruritic rash to the left side of her face in left thumb. She would like to be treated for shingles. I told her there would be unlikely as her symptoms are into different dermatomes. We did however decide to proceed with therapy in the event that one of the areas would be shingles. I did offer to perform viral swab, which she declined. She has responded favorably to steroid cream so will dc with kenalog. She should increased hydration, follow up with primary care provider and return to the ER for worsening symptoms. Pt in agreement with plan of care Level of Care: Express Care Visit Vital Signs Vital signs: Vital Signs Temperature 36.7 C 05/06/25 09:54 Pulse Rate 92 05/06/25 09:54 Respiratory Rate 16 05/06/25 09:54 Blood Pressure 133/76 05/06/25 09:54 Pulse Oximetry 92 05/06/25 09:54 Oxygen Delivery Room Air 05/06/25 09:54 Temperature 36.7 C 05/06/25 09:54 Pulse Rate 92 05/06/25 09:54 Respiratory Rate 16 05/06/25 09:54 Blood Pressure 133/76 05/06/25 09:54 Pulse Oximetry 92 05/06/25 09:54 Oxygen Delivery Room Air 05/06/25 09:54 Medical Decision Making Vital Signs Vital Signs: Vital Signs Temperature 36.7 C 05/06/25 09:54 Pulse Rate 92 05/06/25 09:54 Respiratory Rate 16 05/06/25 09:54 Blood Pressure 133/76 05/06/25 09:54 Pulse Oximetry 92 05/06/25 09:54 Oxygen Delivery Room Air 05/06/25 09:54 Temperature 36.7 C 05/06/25 09:54 Pulse Rate 92 05/06/25 09:54 Respiratory Rate 16 05/06/25 09:54 Blood Pressure 133/76 05/06/25 09:54 Pulse Oximetry 92 05/06/25 09:54 Oxygen Delivery Room Air 05/06/25 09:54 Discharge Plan Discharge Clinical Impression: Rash, vesicular Patient Disposition: Home Condition: Stable Instructions: Antibiotic Form, Acute Rash (ED) Additional Instructions: IF YOU HAVE WORSENING RASH WITH APPLICATION OF TRIAMCINOLONE, PLEASE DISCONTINUE USE Patient Language: Zambian Prescriptions: New valacyclovir [Valtrex] 1 gram tablet 1,000 mg PO TID Qty: 30 0RF triamcinolone acetonide 0.1 % cream 1 applic topical BID Qty: 80 0RF No Action omeprazole 40 mg capsule,delayed release(DR/EC) 40 mg PO DAILY cholecalciferol (vitamin D3) 125 mcg (5,000 unit) capsule 125 mcg PO DAILY amlodipine 5 mg tablet See Rx Instructions .ROUTE .COMPLEX Qty: 100 3RF Dose Instruction: TAKE 1 TABLET BY MOUTH AT BEDTIME Rx Instructions: TAKE 1 TABLET BY MOUTH AT BEDTIME tramadol 50 mg tablet 50 mg PO Q6H PRN (Reason: pain) Qty: 20 0RF levothyroxine 50 mcg tablet See Rx Instructions .ROUTE .COMPLEX Qty: 90 2RF Dose Instruction: TAKE 1 TABLET BY MOUTH ONCE DAILY. Rx Instructions: TAKE 1 TABLET BY MOUTH ONCE DAILY. losartan 50 mg tablet See Rx Instructions .ROUTE .COMPLEX Qty: 180 2RF Dose Instruction: TAKE 1 TABLET BY MOUTH TWICE A DAY Rx Instructions: TAKE 1 TABLET BY MOUTH TWICE A DAY Follow-up/Referrals: Anish Kumar MD [Primary Care Provider] - Time of Disposition: 10:17
== END 2025-05-06 10:20 | disposition home or self-care (01) ==
PROVIDERS: Emergency Provider Nurse Practitioner; PCP Family Medicine
DX: R23.8 Other skin changes (principal); E03.9 Hypothyroidism, unspecified
CPT/HCPCS: 99213; G0463

== ENCOUNTER 2025-07-02 12:29 | Outpatient (CLI) | payer MEDICARE, SELFPAY ==
--- NOTE | ~2025-07-02 | MM_ITS ---
EXAMINATION: MM screening екатерина BI w micheal HISTORY: Screening TECHNIQUE: Craniocaudal and mediolateral oblique 3-D tomosynthesis images were obtained and synthetic 2-D images were generated. CAD analysis was submitted and interpreted. COMPARISON: Comparison to multiple prior studies sequentially, with oldest reviewed study dated , 03/21/2013 BREAST PARENCHYMAL COMPOSITION: There are scattered areas of fibroglandular density. FINDINGS: There is no evidence of suspicious mass, calcification, or architectural distortion to suggest malignancy in either breast. IMPRESSION: 1. No mammographic evidence of malignancy. 2. Recommend routine screening mammography in one year. BI-RADS Category 1: Negative Reviewed, dictated and finalized at location B.
== END 2025-07-02 12:30 | disposition home or self-care (01) ==
PROVIDERS: PCP Family Medicine; Visit Provider Family Medicine
DX: Z12.31 Encounter for screening mammogram for malignant neoplasm of breast (principal)
CPT/HCPCS: 77063; 77067